=== PATIENT | male | born 1985 ===

== ENCOUNTER → 2024-07-16 | Emergency (ER) | payer SELFPAY ==
[~2024-07-16] VITALS: Ht 154.9 cm; Wt 54.5 kg
[2024-07-16 16:30] VITALS: BP 111/72; PULSE 75; RESP 16; TEMP 98.7; O2SAT 100
== END | disposition left against medical advice (07) ==
LOC: EMS 15:41
DX: M25.572 Pain in left ankle and joints of left foot (principal); M54.50 Low back pain, unspecified; Z53.21 Procedure and treatment not carried out due to patient leaving prior to being seen by health care provider